=== PATIENT | female | born 1950 | race Hispanic/Latino ===

== ENCOUNTER 2023-04-13 09:30 | Day surgery (SDC) | payer MEDICARE ==
[2023-04-11 09:01] LABS: BASOPHILS # (AUTO) 0.04 K/uL (0.00-0.20); BASOPHILS % (AUTO) 0.3 % (0.0-5.0); EOSINOPHILS # (AUTO) 0.34 K/uL (0.00-0.70); IMMATURE GRANULOCYTE ABSOLUTE 0.02 K/uL (0-1); LYMPHOCYTES # (AUTO) 2.3 K/uL (1.0-4.8); LYMPHOCYTES % (AUTO) 19.8 % (21.0-51.0); MEAN CORPUSCULAR HEMOGLOBIN 32.8 pg (27.0-33.0); MEAN CORPUSCULAR HGB CONC 32.9 g/dL (32.0-36.0); MEAN CORPUSCULAR VOLUME 99.7 fL (79-99); MONOCYTES # (AUTO) 0.7 K/uL (0.1-1.0); MONOCYTES % (AUTO) 6.4 % (3.0-13.0); NEUTROPHILS # (AUTO) 8.1 K/uL (1.8-7.7); NEUTROPHILS % (AUTO) 70.3 % (40.0-77.0); PLATELET COUNT (AUTO) 250 K/uL (130-400); RED BLOOD CELL COUNT(AUTO) 3.41 MIL/uL (4.00-5.50); RED CELL DISTRIBUTION WIDTH 12.6 % (11.0-15.5); WHITE BLOOD COUNT (AUTO) 11.5 K/uL (4.8-10.8)
[2023-04-11 09:07] LABS: CREATININE 0.9 mg/dL (0.5-1.5); POTASSIUM 3.7 mmol/L (3.5-5.1)
[2023-04-11 09:09] LABS: INR 1.03 (0.85-1.15); PROTHROMBIN TIME 11.9 SEC (9.6-11.6)
[2023-04-11 09:10] LABS: PARTIAL THROMBOPLASTIN TIME 28.8 SEC (26.3-35.5)
[2023-04-11 09:12] VITALS: BP 139/63; PULSE 61; RESP 18
[2023-04-11 09:20] LABS: B-TYPE NATRIURETIC PEPTIDE 58 pg/mL (0-100)
[~2023-04-13] VITALS: Ht 157.5 cm; Wt 63.4 kg
[~2023-04-13 09:30] MED LIST: AMLO2.5T4 PO; ASPI-1197 PO; BIOT50004 PO; CETI10CA5 PO; FAMO20TA8 PO; LEVO100C4 PO; LORA10TA7 PO; MULT-1296 PO; SEMA0.258 SQ; UBID200C18 PO; VALS160T29 PO; ZINC50TA64 PO; collagen PO; vit B 12 PO
[2023-04-13 09:33] VITALS: BP 137/72; PULSE 67; RESP 18
[2023-04-13] MEDS: 0.9%NACL 1000ML 1,000 ML IV ONE (11:03)
[2023-04-13] MEDS ORDERED: NITROGLYCERIN 50MG VIAL ONE (12:48)
[2023-04-13] MEDS ORDERED: LIDOCAINE HCL 400MG/20ML VIAL ONE (12:48)
[2023-04-13] MEDS ORDERED: VERAPAMIL HCL 2.5 MG/ML VIAL ONE (12:48)
[2023-04-13] MEDS ORDERED: HEPARIN 10,000 UNIT/10ML (1,000 UNIT/ML) VIAL ONE (12:49)
[2023-04-13] MEDS ORDERED: BIVALIRUDIN 250 MG/VIAL IV ONE (12:49)
[2023-04-13] MEDS ORDERED: IOHEXOL 350 MG/ML 100ML INFUS..BTL IV ONE (13:22)
[2023-04-13] MEDS ORDERED: FENTANYL CITRATE PF 50 MCG/1 ML 2ML VIAL ONE (13:34)
[2023-04-13] MEDS ORDERED: MIDAZOLAM HCL 1 MG/ML 2ML VIAL ONE (13:34)
[2023-04-13] MEDS ORDERED: GLUCAGON 1MG KIT 1 MG ML IM PRN (14:30)
[2023-04-13] MEDS ORDERED: DEXTROSE 50%-WATER 50 ML DISP.SYRIN IV PRN (14:30)
[2023-04-13 14:34] VITALS: BP 141/72; PULSE 64; RESP 16
[2023-04-13 14:50] VITALS: BP 145/69; PULSE 58; RESP 16
[2023-04-13 15:05] VITALS: BP 139/60; PULSE 58; RESP 16
[2023-04-13 15:20] VITALS: BP 158/65; PULSE 57; RESP 16
[2023-04-13 15:50] VITALS: BP 156/69; PULSE 57; RESP 16
[2023-04-13] MEDS ORDERED: INSULIN HUMULIN R 100 UNIT/ML 3ML SQ SCH (16:30)
== END 2023-04-13 16:30 | disposition home or self-care (01) ==
LOC: DAH 09:30
PROVIDERS: ATTEND Internal Medicine Cardiovascular Disease
DX: I25.118 Atherosclerotic heart disease of native coronary artery with other forms of angina pectoris (principal); R06.09 Other forms of dyspnea; I65.23 Occlusion and stenosis of bilateral carotid arteries; I10 Essential (primary) hypertension; E11.43 Type 2 diabetes mellitus with diabetic autonomic (poly)neuropathy; E78.2 Mixed hyperlipidemia; E11.59 Type 2 diabetes mellitus with other circulatory complications; E66.3 Overweight; Z79.899 Other long term (current) drug therapy; Z79.01 Long term (current) use of anticoagulants; Z79.82 Long term (current) use of aspirin; Z68.25 Body mass index [BMI] 25.0-25.9, adult
CPT/HCPCS: 80048; 83880; 85025; 85610; 85730; 36415; 71045; 93005; 76000; 93458; 82948; A4223 ×3; A4649; J3010; J3490 ×3; J7030; J2250; J1644; Q9967; A4215; A4222; A4221; A4663; A4216; A4606; 99152; 99153; C1769; C1887; J0583; C1894; G0500; Q9965

== ENCOUNTER → 2024-04-05 | Outpatient (CLI) | payer MEDICARE ==
[2024-04-05 16:31] LABS: CREATININE 0.8 mg/dL (0.5-1.0)
== END | disposition home or self-care (01) ==
LOC: LAB 14:01
PROVIDERS: ATTEND Internal Medicine Cardiovascular Disease
DX: I10 Essential (primary) hypertension (principal); E78.5 Hyperlipidemia, unspecified
CPT/HCPCS: 36415; 80048; 80061

== ENCOUNTER → 2024-04-12 | Outpatient (CLI) | payer MEDICARE ==
--- NOTE | 2024-04-12 16:01 | HMCIMG ---
US ARTERIAL UNILA LOW EXT DUPL REASON: aneurysm of artery lle COMPARISON: Left leg return Doppler vascular evaluation was performed with spectral analysis and color flow imaging. TECHNIQUE: Arterial Doppler vascular evaluation was performed with spectral analysis and color flow imaging. FINDINGS: There is a complex loculated fluid collection in the left inguinal region measuring 3.7 x 5.0 x 6.4 cm. This appears most consistent with an evolving hematoma. Seroma could cause this appearance as well. Vascular Doppler evaluation shows elevated flow velocities in the common femoral artery consistent with a stenosis, 325 cm/s. There are trace patient waveforms present throughout the remainder of the lower extremity. Flow velocities are preserved throughout. IMPRESSION: 1. 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 2. Otherwise unremarkable arterial inflow in the left lower extremity. 3. 5 x 6.4 cm complex septated fluid collection in the inguinal region, seroma versus evolving hematoma.
== END | disposition home or self-care (01) ==
LOC: RAH 14:56
PROVIDERS: ATTEND Internal Medicine Cardiovascular Disease
DX: I72.4 Aneurysm of artery of lower extremity (principal)
CPT/HCPCS: 93926

== ENCOUNTER 2024-10-02 12:45 | Emergency (ER) | payer MEDICARE, OTHER ==
[~2024-10-02] VITALS: Ht 157.5 cm; Wt 59.4 kg
[2024-10-02 12:47] VITALS: TEMP 99
--- NOTE | 2024-10-02 13:26 | EKG ---
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
[2024-10-02 13:44] LABS: IMMATURE GRANULOCYTE ABSOLUTE 0.03 K/uL (0-1); NUCLEATED RED BLOOD CELLS 0.0 % (0.0-0.19); PLATELET COUNT (AUTO) 262 K/uL (130-400); RED BLOOD CELL COUNT(AUTO) 3.10 MIL/uL (4.00-5.50); RED CELL DISTRIBUTION WIDTH 12.5 % (11.0-15.5); WHITE BLOOD COUNT (AUTO) 9.9 K/uL (4.8-10.8)
[2024-10-02 13:52] LABS: CREATININE 0.7 mg/dL (0.5-1.0); GLOMERULAR FILTR. RATE CALC 92.0 mL/min (>90); GLUCOSE,RANDOM 123.0 mg/dL (70-105); SODIUM SERUM 133.0 mmol/L (136-145); UREA NITROGEN, BLOOD 15.0 mg/dL (7-18)
[2024-10-02 13:57] LABS: CREATINE KINASE, TOTAL 95.0 U/L (21-232)
--- NOTE | 2024-10-02 14:04 | HMCIMG ---
EXAM: CR Chest, 1 View. CLINICAL HISTORY: CP COMPARISON: X-ray chest 02/08/2024 FINDINGS: LUNGS: Curvilinear reticular opacity lateral aspect of the left lower lung. The remainder the lungs are clear. PLEURAL SPACES: No evidence of pleural effusion or pneumothorax. MEDIASTINUM: Cardiac size and mediastinal contours within normal limits. Changes of median sternotomy BONES: No aggressive appearing osseous lesion seen. IMPRESSION: 1. No acute cardiopulmonary findings. 2. Curvilinear reticular opacity in the left lower lung, may represent atelectasis versus scarring.. No airspace consolidation. 3. Post-median sternotomy changes. /[place]
--- NOTE | 2024-10-02 15:14 | ERN ---
ED Note History of Present Illness Stated Complaint: AFIB Chief Complaint: Chest Pain Time Seen by MD: 13:07 Time Seen by Midlevel: 13:07 Dictation: 72-YEAR-OLD FEMALE PRESENTS TO THE ED FOR EVALUATION OF LEFT-SIDED CHEST/RIB PAIN FOR THE PAST FEW DAYS. DENIES ANY FALL, TRAUMA. DENIES SHORTNESS OF BREATH, ABDOMINAL PAIN, NAUSEA, VOMITING, DIARRHEA PAST MEDICAL HISTORY INCLUDES TYPE 2 DIABETES, AFIB. Allergies: Coded Allergies: No Known Drug Allergies (Unverified Allergy, Unknown, 01/23/24) Home Meds No Active Prescriptions or Reported Meds Past Medical History Past Medical History: A-Fib, Diabetes-Type II, High Cholesterol, Heart Disease, Hypertension Surgical History: CABG, Bariatric Surgery Surgical History Other: BACK, NECK RN Note Reviewed/Agreed w/PFSH: Yes Review of System Dictation Constitutional: Negative for fever,chills, and weight loss Eyes: Negative for injury, pain,redness, and discharge ENT: Negative for injury,pain or swelling Cardiovascular: Negative for chest pain, palpitations, and edema Respiratory: Negative for shortness of breath, cough, and wheezing, Abdomen/GI: Negative for abdominal pain, nausea, vomiting, diarrhea, and constipation Back: Negative for injury and pain : Negative for injury, bleeding and discharge MS/Extremity: Negative for injury and deformity Skin: Negative for rash, and discoloration Neuro: Negative for headache, weakness, numbness, tingling, and seizure Psych: Negative for suicide ideation, homicidal ideation, and hallucinations Review of Systems: was completed Initial Vital Sign VS Vital Signs Date Time Temp Pulse Resp B/P (MAP) Pulse Ox O2 Delivery O2 Flow Rate FiO2 10/02/24 12:47 99.0 142 18 122/75 97 Room Air 0 10/02/24 13:25 21 Physical Exam Dictation General: awake, alert, NAD Head/Face: Normocephalic, atraumatic Eyes: PERRL, EOMI, vision at baseline ENT: oral cavity clear, TMs clear, no signs of infection Neck: Trachea midline, supple, no nuchal rigidity Cardiovascular: RRR, normal S1/S2, No MRGs, no JVD Respiratory: CTAB, no respiratory distress, No rales or wheezes Abdomen: Soft, non-tender, non-distended, normal bowel sounds, no guarding or rebound. Skin: Warm, dry, normal turgor, no rash MS/Extremity: Pulses equal, no cyanosis, neurovascular intact, FROM Neuro: COAx4, GCS 15, strength 5/5, CN 2-12 intact, normal cerebellar exam, normal gait, Psych: Normal behavior, mood, and affect normal Results (Laboratory/Radiology) Laboratory/Radiology Laboratory Tests Test 10/02/24 13:38 10/02/24 15:23 White Blood Count 9.9 K/uL (4.8-10.8) Red Blood Count 3.10 MIL/uL (4.00-5.50) L Hemoglobin 10.3 g/dL (12.0-16.0) L Hematocrit 30.4 % (36-48) L Mean Corpuscular Volume 98.1 fL (79-99) Mean Corpuscular Hemoglobin 33.2 pg (27.0-33.0) H Mean Corpuscular Hemoglobin Concent 33.9 g/dL (32.0-36.0) Red Cell Distribution Width 12.5 % (11.0-15.5) Platelet Count 262 K/uL (130-400) Mean Platelet Volume 8.9 fL (7.5-10.5) Immature Granulocyte % (Auto) 0.3 % (0-1) Neutrophils (%) (Auto) 65.4 % (40.0-77.0) Lymphocytes (%) (Auto) 24.3 % (21.0-51.0) Monocytes (%) (Auto) 8.4 % (3.0-13.0) Eosinophils (%) (Auto) 1.2 % (0.0-8.0) Basophils (%) (Auto) 0.4 % (0.0-5.0) Neutrophils # (Auto) 6.4 K/uL (1.8-7.7) Lymphocytes # (Auto) 2.4 K/uL (1.0-4.8) Monocytes # (Auto) 0.8 K/uL (0.1-1.0) Eosinophils # (Auto) 0.12 K/uL (0.00-0.70) Basophils # (Auto) 0.04 K/uL (0.00-0.20) Absolute Immature Granulocyte (auto 0.03 K/uL (0-1) Nucleated Red Blood Cells 0.0 % (0.0-0.19) Sodium Level 133 mmol/L (136-145) L Potassium Level 3.5 mmol/L (3.5-5.1) Chloride Level 98 mmol/L (101-111) L Carbon Dioxide Level 30 mmol/L (21-32) Blood Urea Nitrogen 15 mg/dL (7-18) Creatinine 0.7 mg/dL (0.5-1.0) Glomerular Filtration Rate Calc 92 mL/min (>90) Random Glucose 123 mg/dL (70-105) H Total Calcium 8.6 mg/dL (8.5-10.1) Total Creatine Kinase 95 U/L (21-232) Troponin I High Sensitivity 17 ng/L (4-50) 16 ng/L (4-50) Labs Reviewed?: Yes EKG Comment: Date:10/02/24 Time:1300 Ventricular rate:80 CT interval:153 QRS duration:88 QT/QTc:338 EKG interpretation: Normal sinus rhythm, no STEMI, no atrial fibrillation Reviewed by ED Attending X-RAY Comment: No acute finding ED Course ED Course Orders Procedure Category Date Status Time 12 Lead Ekg Tracing- EKG 10/02/24 Resulted Technical 13:03 Cbc With Differential LAB 10/02/24 Complete 13:07 Chest 1vw RAD 10/02/24 Resulted 13:07 Creatine Kinase, Total LAB 10/02/24 Complete 13:07 Troponin I High LAB 10/02/24 Complete Sensitivity 13:07 Urinalysis Profile LAB 10/02/24 In Process 13:07 Basic Metabolic Panel LAB 10/02/24 Complete 13:07 Troponin I High LAB 10/02/24 Complete Sensitivity 15:00 Vital Signs Date Time Temp Pulse Resp B/P (MAP) Pulse Ox O2 Delivery O2 Flow Rate FiO2 10/02/24 13:25 56 20 103/64 98 Room Air* 0 21 10/02/24 12:47 99.0 142 18 122/75 97 Room Air 0 HEART Score Response (Comments) Value History: Low suspicion (0) 0 EKG: Normal 0 Age: > 65yrs (+2) 2 Risk Factors: 3+ risk factors (+2) 2 Initial Troponin: Normal limit (0) 0 HEART Score Risk: Mod Risk for MACE (4-6) Total 4 Medical Decision Making MDM MDM: DIFFERENTIAL DIAGNOSIS: AMI, RIB PAIN, RIB FRACTURE NEED FOR HOSPITALIZATION: PATIENT DOES MEET CRITERIA FOR HOSPITALIZATION. NEED FOR EMERGENCY MAJOR/MINOR SURGERY: NO I INDEPENDENTLY INTERPRETED THE TEST THAT WERE PERFORMED, RESULTS WERE REVIEWED BY ME AND CONSIDERED FINDINGS ON RADIOLOGY IF ORDERED. MEDICAL MANAGEMENT AND EXAMINATION INTERPRETATION DISCUSSIONS WERE HAD BY ME WITH OTHER QUALIFIED HEALTHCARE PROFESSIONALS INDICATED FOR THE PATIENT'S CARE. Patient coming in with left-sided rib pain under her breast with a past few days. Denying any substernal chest pain or radiating pain. Exam without evidence of volume overload so doubt heart failure. EKG without signs of active ischemia. Given the timing of pain to ER presentation, TWO NEGATIE TROPONIN so doubt NSTEMI. Presentation not consistent with acute PE,pneumothorax (not visualized on chest xr), thoracic aortic dissection, pericarditis, tamponade, pneumonia (no infectious symptoms, clear chest xr), myocarditis (no recent illness, neg trop). Chest x-ray shows no rib fracture. Stable on room air with no respiratory distress. No overlying erythema, bruising to the ribs. HEART score:4 but no active chest pain and describing more rib pain so plan to discharge patient home with PCP follow up. DX & DISP Disposition: Discharge Departure Impression: Primary Impression: Rib pain on left side Condition: Stable Scripts Lidocaine (Lidocaine) 4 % Adh..patch 1 PATCH TP DAILY for 10 Days, #10 PATCH 0 Refills Prov: SHAI PACE 10/02/24 Additional Instructions: DISCHARGE HOME. REST. FOLLOW UP WITH PRIMARY CARE IN 24 HOURS. RETURN TO THE ER FOR ANY ACUTE CHANGE. PATIENT WAS ALSO ADVISED TO FOLLOW-UP WITH PRIMARY CARE PHYSICIAN IN 1 TO 2 DAYS FOR CONTINUED MONITORING. ALL INSTRUCTIONS WERE GIVEN TO LAYMANS TERM AND PATIENT AGREEABLE TO DISCHARGE AND PROPER FOLLOW-UP. Referrals: CARLTON VILLAGOMEZ MD (PCP) I have reviewed the case, and I agree with, Diagnosis and Plan SHAI PACE Oct 02, 2024 15:14
[2024-10-02 15:30] VITALS: BP 113/56; PULSE 74; RESP 19; O2SAT 98
[2024-10-02] MEDS ORDERED: LIDO1ADH82 TP (16:14)
[2024-10-02 16:18] LABS: APPEARANCE,URINE CLEAR (CLEAR); GLUCOSE, URINE (UA) NEGATIVE (NEGATIVE); LEUKOCYTE ESTERASE ,URINE NEGATIVE Leu/uL (NEGATIVE); NITRATE,URINE NEGATIVE (NEGATIVE); OCCULT BLOOD,URINE NEGATIVE (NEGATIVE)
[2024-10-02 16:24] LABS: ADD UA MICROSCOPIC NO
== END 2024-10-02 16:30 | disposition home or self-care (01) ==
LOC: EDH 12:45
DX: R07.81 Pleurodynia (principal); I48.91 Unspecified atrial fibrillation; E11.9 Type 2 diabetes mellitus without complications; E78.00 Pure hypercholesterolemia, unspecified; I10 Essential (primary) hypertension; Z95.1 Presence of aortocoronary bypass graft
CPT/HCPCS: 36415; 71045; 80048; 81003; 82550; 84484; 85025; 93005; 99283; 99284